=== PATIENT | male | born 1965 | race Caucasian/White ===

== ENCOUNTER 2018-11-16 09:57 | Emergency (ER) | payer BC ==
[2018-11-16 11:03] LABS: Absolute Monocytes 0.8 K/uL (0.1-1.3); Absolute Neutrophil 3.3 K/uL (1.8-8.0); Basophils % 0.6 % (0-1.3); Eosinophils % 1.9 % (0-4.4); Hematocrit 43.3 % (39.6-49.0); Lymphocytes % 19.8 % (15.3-44.8); MPV 7.1 fL (7.6-11.3); Monocytes % 15.2 % (3.3-12.3); RBC Red Blood Cell Count 4.78 M/uL (4.33-5.43)
[2018-11-16 11:05] LABS: Protime INR 1.08
[2018-11-16 11:18] LABS: ALT/SGPT 59 U/L (12-78); AST/SGOT 27 U/L (15-37); Albumin 3.5 g/dL (3.4-5.0); Alkaline Phosphatase 126 U/L (45-117); BUN Blood Urea Nitrogen 9 mg/dL (7-18); Bicarbonate 26 mmol/L (21-32); Bilirubin Direct 0.2 mg/dL (0-0.2); Bilirubin Total 0.3 mg/dL (0.2-1.0); Glucose Level 97 mg/dL (74-106); Lipase 91 U/L (73-393); Potassium 3.9 mmol/L (3.5-5.1); Protein, Total 7.4 g/dL (6.4-8.2); Sodium Level 140 mmol/L (136-145)
--- NOTE | 2018-11-16 11:43 | RAD REPORT ---
EXAM DESCRIPTION: CT - Abdomen Pelvis W Contrast - 11/16/2018 11:30 am CLINICAL HISTORY: Abdominal pain, pelvic and rectal pain, bright red blood per rectum COMPARISON: CT imaging September 2015 TECHNIQUE: Biphasic, helical CT imaging of the abdomen and pelvis was performed following 100 ml non -ionic IV contrast. Oral contrast was given. All CT scans are performed using dose optimization technique as appropriate and may include automated exposure control or mA/KV adjustment according to patient size. FINDINGS: No suspicious findings in the lung bases. No pericardial thickening or effusion. Liver shows fatty infiltration pattern. In the right lobe of the liver near the gallbladder fossa the re is a 2.9 centimeter area of diminished attenuation. This is slightly larger than seen in 2015. Thi s is probably a form of spared parenchyma in an otherwise fatty infiltrated liver. An atypical mayo ioma would be possible. Malignant or aggressive process would be unlikely given the small amount of c hange occurring over a greater than 3 year time interval. Gallbladder and biliary tree are also witho ut suspicious finding. No spleen or pancreatic abnormality. Symmetric renal function is seen with no hydronephrosis or suspicious renal mass. No pyelonephritis o r acute parenchymal process. No bladder abnormalities. No adrenal abnormalities. No stomach or small bowel abnormality seen. Appendix is normal. There is circumferential wall thicken ing and edema throughout the colon. Minimal sigmoid diverticulosis is present. A discrete or focal co gilbert mass is not identified. No free air, free fluid or pneumatosis. Trace amount of stranding is seen adjacent to the colon. N o mass or bulky lymphadenopathy. No omental thickening. Patient has moderate-sized bilateral fat fill ed inguinal hernias. No acute bone finding. Prominent disc and endplate degenerative change present at L5-S1. IMPRESSION: Nonspecific pancolitis pattern with no discrete mass. No obstruction, free air or surgically emergent finding. Fatty infiltration of the liver with a small area of spared parenchyma or atypical hemangioma in the right lobe near the gallbladder fossa. This has minimally enlarged since 2015. Malignancy would not b e suspected given the minimal change management consultant a greater than 3 year interval.
[2018-11-16 12:13] LABS: Blood Morphology Comment NOT SEEN (NOT SEEN); Dohle Bodies PRESENT; Platelet Estimate ADEQ; Toxic Granulation 1+
--- NOTE | 2018-11-16 12:20 | EDPHYS ---
Physician Documentation [facility] Name: Vito Nava Sr Age: 53 yrs Sex: Male : 1965 Arrival Date: 11/16/2018 Time: 10:00 Bed 19 Private MD: Dina Schumacher K ED Physician Ben Luna HPI: 11/16 11:00 This 53 yrs old Male presents to ER via Ambulatory with complaints of Rectal pm1 Bleeding. 11:00 The patient presents to the emergency department with bleeding from the rectum/anus, pm1 that is mild. Onset: The symptoms/episode began/occurred yesterday. Context: the patient has no known special context relating to the rectal area complaint(s). Modifying factors: The symptoms are alleviated by nothing, The symptoms are aggravated by bowel movement. Associate signs and symptoms: Pertinent positives: abdominal pain in the abdomen diffusely, anal area with bowel movement, Pertinent negatives: constipation, diarrhea, dysuria, fever, vomiting. Had colitis many years ago. The patient has not recently seen a physician, the patient's primary care provider is Dr. Dina Schumacher. Patient reports bright red blood present with bowel movements since yesterday. Has generalized abdominal pain and anal area pain with bowel movements. Historical: - Allergies: 10:05 No Known Allergies; aa5 - PMHx: 10:05 None; aa5 - PSHx: 10:05 melanoma removal-left underarm; aa5 - Immunization history:: Adult Immunizations up to date. - Social history:: Smoking status: Patient/guardian denies using tobacco. - Ebola Screening: : No symptoms or risks identified at this time. ROS: 11:00 Constitutional: Negative for fever, chills, and weight loss, Eyes: Negative for injury, pm1 pain, redness, and discharge, ENT: Negative for injury, pain, and discharge, Neck: Negative for injury, pain, and swelling, Cardiovascular: Negative for chest pain, palpitations, and edema, Respiratory: Negative for shortness of breath, cough, wheezing, and pleuritic chest pain. 11:00 Back: Negative for injury and pain, : Negative for injury, bleeding, discharge, and swelling, MS/Extremity: Negative for injury and deformity, Skin: Negative for injury, rash, and discoloration. 11:00 Neuro: Negative for headache, weakness, numbness, tingling, and seizure. 11:00 Abdomen/GI: Positive for abdominal pain, rectal pain, rectal bleeding, Negative for nausea, vomiting, and diarrhea, hematemesis, black/tarry stool. Exam: 11:00 Constitutional: This is a well developed, well nourished patient who is awake, alert, pm1 and in no acute distress. Head/Face: Normocephalic, atraumatic. Eyes: Pupils equal round and reactive to light, extra-ocular motions intact. Lids and lashes normal. Conjunctiva and sclera are non-icteric and not injected. Cornea within normal limits. Periorbital areas with no swelling, redness, or edema. ENT: Nares patent. No nasal discharge, no septal abnormalities noted. Tympanic membranes are normal and external auditory canals are clear. Oropharynx with no redness, swelling, or masses, exudates, or evidence of obstruction, uvula midline. Mucous membranes moist. Neck: Trachea midline, no thyromegaly or masses palpated, and no cervical lymphadenopathy. Supple, full range of motion without nuchal rigidity, or vertebral point tenderness. No Meningismus. Chest/axilla: Normal chest wall appearance and motion. Nontender with no deformity. No lesions are appreciated. Cardiovascular: Regular rate and rhythm with a normal S1 and S2. No gallops, murmurs, or rubs. Normal PMI, no JVD. No pulse deficits. Respiratory: Lungs have equal breath sounds bilaterally, clear to auscultation and percussion. No rales, rhonchi or wheezes noted. No increased work of breathing, no retractions or nasal flaring. Abdomen/GI: Soft, non-tender, with normal bowel sounds. No distension or tympany. No guarding or rebound. No evidence of tenderness throughout. 11:00 Back: No spinal tenderness. No costovertebral tenderness. Full range of motion. Skin: Warm, dry with normal turgor. Normal color with no rashes, no lesions, and no evidence of cellulitis. MS/ Extremity: Pulses equal, no cyanosis. Neurovascular intact. Full, normal range of motion. 11:00 Abdomen/GI: Rectal exam: rectal tone normal, hemorrhoid(s), external, with pain, without bleeding, without inflammation, without thrombosis, tenderness, that is mild, Robyn RN, Anal fissure present at 6 o'clock. External hemorrhoids present at 3 and 9 o'clock. 11:00 Neuro: Orientation: is normal, Motor: is normal, moves all fours, Gait: is steady, at a normal pace, without difficulty. Vital Signs: 10:08 BP 154 / 104; Pulse 90; Resp 14; Temp 98.5; Pulse Ox 96% ; Weight 90.72 kg; Height 5 bp ft. 7 in. (170.18 cm); Pain 8/10; 10:55 BP 148 / 85; Pulse 81; Resp 14; Pulse Ox 94% ; bp 13:00 BP 142 / 80; Pulse 74; Resp 14; Pulse Ox 96% ; bp 10:08 Body Mass Index 31.32 (90.72 kg, 170.18 cm) bp MDM: 10:15 Patient medically screened. pm1 12:18 Data reviewed: vital signs. pm1 12:18 Counseling: I had a detailed discussion with the patient and/or guardian regarding: the pm1 historical points, exam findings, and any diagnostic results supporting the discharge/admit diagnosis, lab results, radiology results, the need for outpatient follow up, a equipment monitor phototypesetting, colonoscopy , to return to the emergency department if symptoms worsen or persist or if there are any questions or concerns that arise at home. 11/16 10:41 Order name: Basic Metabolic Panel; Complete Time: 11:19 pm11/16 10:41 Order name: CBC with Diff; Complete Time: 12:17 pm11/16 10:41 Order name: Creatinine for Radiology; Complete Time: 11: pm11/16 10:41 Order name: Hepatic Function; Complete Time: 11: pm11/16 10:41 Order name: Lipase; Complete Time: 11:19 pm11/16 10:41 Order name: Type And Screen; Complete Time: 12:17 pm11/16 10:41 Order name: IV Saline Lock; Complete Time: 10:54 pm11/16 10:41 Order name: PT-INR; Complete Time: 11:19 pm11/16 10:41 Order name: CT Abd/Pelvis - W/Contrast: IV contrast only; Complete Time: 11:44 pm1 11/16 12:13 Order name: Manual Differential; Complete Time: 12:17 EDMS 11/16 10:41 Order name: Labs collected and sent; Complete Time: 10:54 pm1 Administered Medications: 12:30 Drug: Cipro 500 mg Route: PO; bp 13:44 Follow up: Response: No adverse reaction bp 12:30 Drug: Flagyl 500 mg Volume: 100 ml; Route: IVPB; Rate: 200 ml/hr; Infused Over: 30 bp mins; Site: right forearm; 13:43 Follow up: IV Status: Completed infusion bp Disposition: 14:59 Co-signature as Attending Physician, Ben Luna MD. rn Disposition: 11/16/18 12:20 Discharged to Home. Impression: Pancolitis. - Condition is Stable. - Discharge Instructions: Colitis. - Prescriptions for Flagyl 500 mg Oral Tablet - take 1 tablet by ORAL route every 8 hours for 10 days; 30 tablet. Cipro 500 mg Oral Tablet - take 1 tablet by ORAL route every 12 hours for 10 days; 20 tablet. Colace 100 mg Oral Tablet - take 1 tablet by ORAL route every 12 hours; 14 tablet. - Work release form, Medication Reconciliation Form, Thank You Letter, Antibiotic Education, Prescription Opioid Use form. - Follow up: Emergency Department; When: As needed; Reason: Worsening of condition. Follow up: Contreras Whitaker MD; When: 2 - 3 days; Reason: Recheck today's complaints, Continuance of care, Re-evaluation by your physician. - Problem is new. - Symptoms have improved. Signatures: Dispatcher [employer] EDMS Ben Luna MD MD rn Calderon, Audri, RN RN aa5 Jaime Carrion, FOUNDATION ENGINEER FOUNDATION ENGINEER pm1 Rusty Pal, RN RN bp Corrections: (The following items were deleted from the chart) 10:56 10:25 Foot Right 3 View+RAD.RAD.BRZ ordered. EDDC EDMS 10:56 10:26 Ankle Right 3 View+RAD.RAD.BRZ ordered. EDDC EDMS 13:44 12:20 11/16/2018 12:20 Discharged to Home. Impression: Pancolitis. Condition is Stable. bp Forms are Medication Reconciliation Form, Thank You Letter, Antibiotic Education, Prescription Opioid Use. Follow up: Emergency Department; When: As needed; Reason: Worsening of condition. Follow up: Contreras Whitaker; When: 2 - 3 days; Reason: Recheck today's complaints, Continuance of care, Re-evaluation by your physician. Problem is new. Symptoms have improved. pm1
--- NOTE | 2018-11-16 12:20 | ER ---
Nurse's Notes [facility] Name: Vito Nava Sr Age: 53 yrs Sex: Male : 1965 Arrival Date: 11/16/2018 Time: 10:00 Bed 19 Private MD: Dina Schumacher K Diagnosis: Pancolitis Presentation: 11/16 10:05 Presenting complaint: Patient states: bright red blood in stool since yesterday. Pt aa5 reports rectal pain and generalized abd aching. Denies nausea and vomiting. 10:05 Transition of care: patient was not received from another setting of care. Onset of aa5 symptoms was October 2018. Risk Assessment: Do you want to hurt yourself or someone else? Patient reports no desire to harm self or others. Initial Sepsis Screen: Does the patient meet any 2 criteria? No. Patient's initial sepsis screen is negative. Does the patient have a suspected source of infection? No. Patient's initial sepsis screen is negative. Care prior to arrival: None. 10:05 Method Of Arrival: Ambulatory aa5 10:05 Acuity: SISI 3 aa5 Historical: - Allergies: 10:05 No Known Allergies; aa5 - PMHx: 10:05 None; aa5 - PSHx: 10:05 melanoma removal-left underarm; aa5 - Immunization history:: Adult Immunizations up to date. - Social history:: Smoking status: Patient/guardian denies using tobacco. - Ebola Screening: : No symptoms or risks identified at this time. Screenin:06 Abuse screen: Denies threats or abuse. Denies injuries from another. Nutritional bp screening: No deficits noted. Tuberculosis screening: No symptoms or risk factors identified. Fall Risk None identified. Assessment: 10:04 General: Appears in no apparent distress. comfortable, obese, Behavior is cooperative, bp appropriate for age, anxious. General: C/O BRIGHT RED BLOOD IN STOOL SINCE Y/D. Pain: Complains of pain in RECTUM. Neuro: Level of Consciousness is awake, alert, obeys commands, Oriented to person, place, time, situation, Appropriate for age. Cardiovascular: No deficits noted. Respiratory: Airway is patent Respiratory effort is even, unlabored, Respiratory pattern is regular, symmetrical. GI: Reports rectal bleeding, bloody stool. : No signs and/or symptoms were reported regarding the genitourinary system. EENT: No deficits noted. Derm: No deficits noted. Musculoskeletal: Circulation, motion, and sensation intact. Range of motion: intact in all extremities. 11:21 Reassessment: PT TO CT WITH Pe[place]orn. OTHER ORDERS COMPLETED. bp 13:41 Reassessment: PT D/C HOME AMBULATORY WITH FAMILY, DX WITH PANCOLITIS. bp Vital Signs: 10:08 BP 154 / 104; Pulse 90; Resp 14; Temp 98.5; Pulse Ox 96% ; Weight 90.72 kg; Height 5 bp ft. 7 in. (170.18 cm); Pain 8/10; 10:55 BP 148 / 85; Pulse 81; Resp 14; Pulse Ox 94% ; bp 13:00 BP 142 / 80; Pulse 74; Resp 14; Pulse Ox 96% ; bp 10:08 Body Mass Index 31.32 (90.72 kg, 170.18 cm) bp ED Course: 10:00 Patient arrived in ED. mr 10:01 Dina Schumacher MD is Private Physician. mr 10:02 Rusty Pal, ERINN is Primary Nurse. bp 10:03 Jaime Carrion NP is PHCP. pm1 10:03 Ben Luna MD is Attending Physician. pm1 10:06 Patient has correct armband on for positive identification. Placed in gown. Bed in low bp position. Call light in reach. Side rails up X2. Adult w/ patient. 10:08 Triage completed. aa5 10:54 Inserted saline lock: 18 gauge in right forearm, using aseptic technique. Blood bp collected. 11:29 CT completed. Patient tolerated procedure well. Patient moved to CT via wheelchair. sj Patient moved back from CT. 11:31 CT Abd/Pelvis - W/Contrast: IV contrast only In Process Unspecified. EDMS 12:19 Contreras Whitaker MD is Referral Physician. pm1 13:41 No provider procedures requiring assistance completed. IV discontinued, intact, bp bleeding controlled, No redness/swelling at site. Pressure dressing applied. 13:42 Arm band placed on. bp Administered Medications: 12:30 Drug: Cipro 500 mg Route: PO; bp 13:44 Follow up: Response: No adverse reaction bp 12:30 Drug: Flagyl 500 mg Volume: 100 ml; Route: IVPB; Rate: 200 ml/hr; Infused Over: 30 bp mins; Site: right forearm; 13:43 Follow up: IV Status: Completed infusion bp Outcome: 12:20 Discharge ordered by MD. pm1 13:42 Discharged to home ambulatory, with family. bp 13:42 Condition: stable 13:42 Discharge instructions given to patient, family, Instructed on discharge instructions, follow up and referral plans. medication usage, Demonstrated understanding of instructions, follow-up care, medications, Prescriptions given X 3. 13:44 Patient left the ED. bp Signatures: Dispatcher [employer] EDLA Theresa Lucio, Rosalina Lerner, RN RN aa5 Jaime Carrion NP JEWELRY FACER pm1 Rusty Pal, RN RN bp
[2018-11-16] MEDS ORDERED: CIPROFLOXACIN HCL 500 MG TAB ONE (12:33)
[2018-11-16] MEDS ORDERED: METRONIDAZOLE 500mg IVPB 500 MG/100 ML BAG IV ONE (12:33)
== END 2018-11-16 13:44 | disposition home or self-care (01) ==
LOC: ER 09:57
DX: K51.00 Ulcerative (chronic) pancolitis without complications (principal)
CPT/HCPCS: 36415; 74177; 80048; 80076; 83690; 85025; 85610; 86850; 86900; 86901; 96365; 99284; Q9967

== ENCOUNTER 2022-06-05 06:20 | Day surgery (SDC) | payer BC ==
[2022-06-05] MEDS ORDERED: Ringers Lactate 1,000 ML IV ONE (06:50)
[2022-06-05] MEDS ORDERED: CEFAZOLIN SODIUM 1 GM/VIAL ONE (06:50)
[2022-06-05 07:05] LABS: Absolute Lymphocytes (CBC) 1.6 K/uL (0.7-4.9); Hematocrit 39.1 % (39.6-49.0); Lymphocytes % 32.3 % (15.3-44.8); MCV 87.1 fL (80-100); MPV 6.4 fL (7.6-11.3); RBC Red Blood Cell Count 4.49 M/uL (4.33-5.43)
[2022-06-05 07:22] LABS: SARS-CoV-2 Antigen Rapid Res Negative (Negative)
[2022-06-05] MEDS ORDERED: BUPIVACAINE 0.5% PF 10 ML VIAL SQ ONE ×2 (07:27)
[2022-06-05] MEDS ORDERED: FENTANYL CITR 100 MCG/2 ML ONE ×2 (08:07→09:19)
[2022-06-05] MEDS ORDERED: propofoL 200 MG/20 ML VIAL IV ONE ×2 (08:07→09:19)
[2022-06-05] MEDS ORDERED: MIDAZOLAM HCL 2 MG/2 ML INJ ONE ×2 (08:08→09:19)
[2022-06-05] MEDS ORDERED: ONDANSETRON 4 MG/2 ML VIAL ONE ×2 (08:09→09:23)
[2022-06-05] MEDS ORDERED: LIDOCAINE 1% MPF 5 ML VIAL ONE (08:10)
[2022-06-05] MEDS ORDERED: EPHEDRINE SULF 50 MG/ML VIAL ONE (08:38)
--- NOTE | 2022-06-05 08:42 | RAD REPORT ---
EXAM DESCRIPTION: RAD - Chest Single View - 06/05/2022 6:52 am CLINICAL HISTORY: PRE-OP Chest pain. COMPARISON: CHEST SINGLE VIEW dated 04/05/2010; ABDOMEN ACUTE SERIES dated 01/18/2005 FINDINGS: Portable technique limits examination quality. The lungs are grossly clear. The heart is normal in size. No displaced fractures. IMPRESSION: No acute intrathoracic process suspected.
[2022-06-05] MEDS ORDERED: Mastisol Adhesive Liq ONE (08:53)
[2022-06-05] MEDS ORDERED: dexAMETHasone 10 MG/ML VIAL ONE (08:54)
--- NOTE | 2022-06-05 09:00 | P.OP ---
Date of Service: 06/05/22 Preop diagnosis: Right forearm mass Postop diagnosis: Same Procedure performed: Excision right forearm mass 3 x 4 cm with layered closure Surgeon: Jose Peña MD Kitchen Clerk: None Estimated blood loss: Minimal Specimen: Right forearm mass Findings: Likely sebaceous cyst Anesthesia: General Complications: None Drains: None Fluids and blood products: Nonapplicable Disposition: Recovery room Operative note: Patient brought to the OR and placed in the supine position. General anesthesia begun. Patient prepped and draped in usual sterile fashion. Marcaine 0.5% infiltrated locally. 15 blade used to make a 5 cm incision. Subcutaneous tissue divided. A 3 x 4 cm sebaceous cyst identified and freed from the surrounding tissue with sharp and blunt dissection. Cyst removed and sent to pathology. Wound irrigated and bleeding controlled with cautery. 3-0 chromic used to approximate subcutaneous tissue and close skin. Sterile dressing applied. Patient awakened and taken to recovery room in good general condition. CC: Dr. Dina Schumacher's office
[2022-06-05] MEDS ORDERED: LIDOCAINE 2% MPF 5 ML VIAL ONE (09:19)
[2022-06-05 09:32] VITALS: O2SAT 96
[2022-06-05 12:48] VITALS: BP 137/76; TEMP 98.1
--- NOTE | 2022-06-09 08:28 | EKG ---
Test Date: 2022-06-05 Test Time: 06:55:26 Machine Cementer And Folder: JORGE MEASUREMENT RESULTS: Intervals: Rate: 69 MD: 154 QRSD: 86 QT: 398 QTc: 426 [place]: P: 28 MD: 154 QRS: -16 T: 50 INTERPRETIVE STATEMENTS: Normal sinus rhythm Normal ECG Compared to ECG 04/05/2010 10:30:23 Prolonged QT interval no longer present Electronically Signed On 06-09-22 08:13:14 CDT by Jamarcus Barkley
== END 2022-06-05 10:05 | disposition home or self-care (01) ==
LOC: OR 06:20
PROVIDERS: ATTEND Surgery
PROC: 0JBG0ZZ Excision of Right Lower Arm Subcutaneous Tissue and Fascia, Open Approach (ICD-10-PCS; principal; 2022-06-05 08:00)
DX: L72.0 Epidermal cyst (principal); Z20.822 Contact with and (suspected) exposure to COVID-19
CPT/HCPCS: 93005; 85025; 36415; 88304; 71045; 87811; 11403; J2704; J2250; J3010; J1100; J7120; J2405; J0690; 88305

== ENCOUNTER 2024-10-30 11:18 | Emergency (ER) | payer BC ==
--- OUTSIDE RECORDS SUMMARY | 2024-10-30 11:20 | XMS REPORT | Continuity of Care Document ---
Author Name Unknown Address [address] [place] [address] [facility] Address [address] [place] [address] Care Team Providers Care Digital Associate Name Role Phone Blake Leonardo Attending Clinician Unavailable Payers Payer Name Policy Type Policy Number Effective Date Expirati on Date Source [facility] 6 [id number] 2024 00:00:00 [facility] Problems Condition Name Condition Details Condition Category Status Onset Date Resolution Date Last Treatment Date Treating Clinician Comments Source [id number] Mixed hyperlipid emia Problem [facility] [id number] History of melanoma Problem [facility] [id number] Body mass index [BMI] 34.0-34.9, adult Problem Active [facility] [id number] Other obesity due to excess calories Problem Active [facility] Social History Social Habit Start Date Stop Date Quantity Comments Source History of Tobacco Use [facility] Sex Assigned At [facility] Smoking Status Start Date Stop Date Source Former Smoker 2024-05-30 00:00:00 2024-05-30 00:00:00 [facility] Medications Ordered Medication Name Filled Medication Name Start Date Stop Date Current Medication? Ordering Clinician Indication Dosage Frequency Signature (SIG) Comments Components Source No Known Medications No Known Medications No [facility] Vital Signs Vital Name Observation Time Observation Value Comments S ource height 2024-05-30 09:00:00 67 [in_i] Commo n [facility] weight 2024-05-30 09:00:00 218.2 [lb_av] Co [facility] temperature 2024-05-30 09:00:00 97.7 [degF] Com [facility] bmi 2024-05-30 09:00:00 34.17 kg/m2 Comm on [facility] oximetry 2024-05-30 09:00:00 98 % Commo n [facility] blood pressure systolic 2024-05-30 09:00:00 139 mm[Hg] Common [facility] blood pressure diastolic 2024-05-30 09:00:00 78 mm[Hg] Common [facility] height 2024-04-26 10:20:00 67 [in_i] Commo n [facility] weight 2024-04-26 10:20:00 215 [lb_av] Comm on [facility] temperature 2024-04-26 10:20:00 98 [degF] Comm on [facility] bmi 2024-04-26 10:20:00 33.67 kg/m2 Comm on [facility] oximetry 2024-04-26 10:20:00 99 % Commo n [facility] blood pressure systolic 2024-04-26 10:20:00 138 mm[Hg] Common [facility] blood pressure diastolic 2024-04-26 10:20:00 74 mm[Hg] Common [facility] height 2022-06-01 14:00:00 67 [in_i] Commo n [facility] weight 2022-06-01 14:00:00 223.2 [lb_av] Co [facility] temperature 2022-06-01 14:00:00 98.8 [degF] Com [facility] bmi 2022-06-01 14:00:00 34.95 kg/m2 Comm on [facility] oximetry 2022-06-01 14:00:00 96 % Commo n [facility] respiratory rate 2022-06-01 14:00:00 17 /min [facility] blood pressure systolic 2022-06-01 14:00:00 135 mm[Hg] [facility] blood pressure diastolic 2022-06-01 14:00:00 74 mm[Hg] [facility] Encounters Start Date/Time End Date/Time Encounter Type Admission Type Attending Clinicians Care Facility Care Department Encounter ID Source 2024-04-24 13:41:00 Outpatient LeonardoBlkae navarro [facility] [id number] [facility] 2024-04-17 15:01:00 Outpatient LeonardoChinyere navarroh [facility] [id number] [facility] 2022-06-01 13:06:01 Outpatient LeonardoChinyere navarroh [facility] [id number] [facility] 2024-05-30 00:00:00 2024-05-30 00:00:00 OFFICE VISIT ESTAB PT LEVEL 3 [facility] [id number] [facility] 2024-04-26 00:00:00 2024-04-26 00:00:00 PREV VISIT EST AGE 40-64 [facility] [id number] [facility] 2024-04-17 00:00:00 2024-04-17 00:00:00 (TEL) [facility]C ST[facility] [id number] [facility] 2023-11-29 00:00:00 2023-11-29 00:00:00 (TEL) [facility] [id number] [facility] 2022-06-01 00:00:00 2022-06-01 00:00:00 PREV VISIT NEW AGE 40-64 [facility] ST[facility] [id number] [facility]
[2024-10-30] MEDS ORDERED: KETOROLAC 30 MG/ML INJ ONE (12:33)
--- NOTE | 2024-10-30 12:54 | RAD REPORT ---
EXAMINATION: ULTRASOUND DUPLEX OF SCROTUM AND TESTICLES CLINICAL INDICATION: Testicular pain TECHNIQUE: Duplex scan of the scrotal contents was performed including real-time color and spectral D oppler ultrasonography with arterial inflow and venous outflow. COMPARISON: 2019 FINDINGS: Right testicle measures 4.6 x 2.2 x 3.3 cm with a mildly inhomogeneous echotexture. Normal blood flow . Left testicle measures 5.1 x 2.7 x 3.8 cm with a mildly inhomogeneous echotexture. Normal blood flow. Right epididymis normal in size and echotexture. Normal blood flow Left epididymis normal in size and echotexture. Normal blood flow. 6 mm spermatocele Anterior scrotal thickening near midline IMPRESSION: 6 mm left spermatocele Anterior scrotal thickening near midline
[2024-10-30 13:33] LABS: Specific Gravity 1.028 (1.005-1.030); Sqamous Epithelial <5 /HPF (None Seen); Urine Bacteria None Seen /HPF (<20); Urine Bilirubin NEGATIVE (Negative); Urine Blood Negative (Negative); Urine Clarity Clear (Clear); Urine Color Light-Yellow (Yellow); Urine Culture Reflex Order NOT NEEDED; Urine Glucose NEGATIVE (Negative); Urine Ketones NEGATIVE (Negative); Urine Micro Reflex YN NO BILL MICROSCOPIC; Urine Nitrite NEGATIVE (Negative); Urine Protein NEGATIVE (Negative); Urine RBC <5 /HPF (None Seen); Urine Urobilinogen Normal (Normal); Urine WBC <5 /HPF (<5)
--- NOTE | 2024-10-30 13:51 | EDPHYS ---
Physician Documentation [facility] Name: Vito Nava Sr Age: 59 yrs Sex: Male : 1965 Arrival Date: 10/30/2024 Time: 11:18 Bed 13 Private MD: ED Physician Dontae Malcolm HPI: 10/30 11:43 This 59 yrs old Male presents to ER via Ambulatory with complaints of Groin ec2 Pain. 11:43 Patient arrives today for evaluation of right groin pain. Patient been having right ec2 groin pain for the past 5 days. Patient reports that it feels like the testicle has retracted into his abdomen. Patient reports no fevers or chills, no nausea or vomiting. Reports no penile discharge, denies any penile drainage or urinary complaints. Reports no redness to the scrotum. Patient reports no abdominal pain.. Historical: - Allergies: 11:40 No Known Allergies; hb - Home Meds: 11:40 None [Active]; hb - PMHx: 11:40 None; hb - PSHx: 11:40 Left Testicle; hb - Immunization history:: Adult Immunizations up to date. - Infectious Disease History:: Denies. - Social history:: Smoking status: Patient reports the use of cigarette tobacco products, denies chronic smoking, but will smoke occasionally. ROS: 11:43 Constitutional: as per hpi ec2 Exam: 11:43 Constitutional: GEN: NAD Head: atraumatic Eyes: EOMI Ears: External ears are ec2 normal. CV: regular rate LUNGS: no respiratory distress ABD: non-distended . : Right testicle with TTP, intact cremasteric reflex, no erythema to the scrotum, no significant warmth, no drainage appreciated from the penis. SKIN: no evidence of rashes MSK: no evidence of trauma Vital Signs: 11:39 BP 143 / 93; Pulse 88; Resp 16; Temp 97.8; Pulse Ox 96% on R/A; Weight 90.72 kg; Height hb 5 ft. 7 in. ; Pain 8/10; 12:30 BP 115 / 72; Pulse 69; Resp 16; Pulse Ox 97% on R/A; me1 13:00 BP 122 / 81; Pulse 67; Resp 15; Pulse Ox 96% ; me1 14:00 BP 104 / 77; Pulse 71; Resp 16; Temp 98.5; Pulse Ox 98% ; me1 14:24 Pain 5/10; me1 11:39 Body Mass Index 31.32 (90.72 kg, 170.18 cm) hb 11:39 Pain Scale: Adult hb 14:24 Pain Scale: Adult me1 MDM: 11:34 Medical Screening Exam initiated ec2 11:43 Data reviewed: vital signs, nurses notes. ED course: Patient arrives today for right ec2 groin pain. Examination yields scrotal findings as above. Will obtain testicular ultrasound. Suspect possible epididymitis, orchitis, additionally considered torsion, possible urinary tract infection.. 13:51 ED course: Ultrasound negative, urine noninfectious. Will discharge and have the ec2 patient follow-up with PCP and urology. Return precautions given.. 10/30 12:12 Order name: UAM; Complete Time: 13:50 ec2 10/30 12:12 Order name: Scrotum Testicles US; Complete Time: 12:59 ec2 10/30 13:00 Order name: Misc. Order: urine please, cath if needed; Complete Time: 13:14 ec2 Administered Medications: 12:45 Drug: Ketorolac IM 30 mg IM once Route: IM; Site: right gluteus; me1 14:24 Follow up: Pain 5/10 Adult; Response: No adverse reaction; Pain is decreased me1 Disposition Summary: 10/30/24 13:51 Discharge Ordered Notes: Location: Home ec2 Condition: Stable ec2 Diagnosis - Right testicular pain ec2 Followup: ec2 - With: Private Physician - When: - Reason: Re-evaluation by your physician Followup: ec2 - With: Alistair Shepherd MD - When: - Reason: Recheck today's complaints Discharge Instructions: - Discharge Summary Sheet ec2 - Spermatocele ec2 Forms: - Medication Reconciliation Form ec2 - Antibiotic Education ec2 - Prescription Opioid Use ec2 - Patient Portal Instructions ec2 - Leadership Thank You Letter ec2 Signatures: Dispatcher [employer] Fadumo Perkins RN RN Fabiola Jacobs RN RN me1 Dontae Malcolm MD MD ec2 Corrections: (The following items were deleted from the chart) 12:12 11:43 ED course: Patient arrives today for right groin pain.. ec2 ec2 12:12 12:12 Urinalysis W/Microscopic+U.LAB.BRZ ordered. EDMS EDMS 12:12 11:43 Constitutional: GEN: NAD Head: atraumatic Eyes: EOMI Ears: External ears are ec2 normal. CV: regular rate LUNGS: no respiratory distress ABD: non-distended SKIN: no evidence of rashes MSK: no evidence of trauma ec2
--- NOTE | 2024-10-30 13:51 | ER ---
Nurse's Notes [facility] Name: Vito Nava Sr Age: 59 yrs Sex: Male : 1965 Arrival Date: 10/30/2024 Time: 11:18 Bed 13 Private MD: Diagnosis: Right testicular pain Presentation: 10/30 11:39 Chief complaint: Right groin pain x 5 days. Denies urinary issues. Coronavirus screen: hb At this time, the client does not indicate any symptoms associated with coronavirus-19. Ebola Screen: No symptoms or risks identified at this time. Initial Sepsis Screen: Does the patient meet any 2 criteria? No. Patient's initial sepsis screen is negative. Does the patient have a suspected source of infection? No. Patient's initial sepsis screen is negative. Risk Assessment: Do you want to hurt yourself or someone else? Patient reports no desire to harm self or others. Onset of symptoms was October 26, 2024. 11:39 Method Of Arrival: Ambulatory hb 11:39 Acuity: SISI 3 hb Historical: - Allergies: 11:40 No Known Allergies; hb - Home Meds: 11:40 None [Active]; hb - PMHx: 11:40 None; hb - PSHx: 11:40 Left Testicle; hb - Immunization history:: Adult Immunizations up to date. - Infectious Disease History:: Denies. - Social history:: Smoking status: Patient reports the use of cigarette tobacco products, denies chronic smoking, but will smoke occasionally. Screenin:38 [facility] ED Fall Risk Assessment (Adult) History of falling in the last 3 months, me1 including since admission No falls in past 3 months (0 pts) Confusion or Disorientation No (0 pts) Intoxicated or Sedated No (0 pts) Impaired Gait No (0 pts) Mobility Assist Device Used No (0 pt) Altered Elimination No (0 pt) Score/Fall Risk Level 0 - 2 = Low Risk Maintained a safe environment, Provided non-skid footwear, Hourly rounding (assess needs \T\ fall precautionary measures) done. Abuse screen: Denies threats or abuse. Nutritional screening: No deficits noted. Tuberculosis screening: No symptoms or risk factors identified. Assessment: 12:38 General: Appears uncomfortable, well groomed, well developed, well nourished, Behavior me1 is calm, cooperative, appropriate for age, Reports Right groin pain x 5 days. Denies urinary issues. Pain: Complains of pain in groin and right femoral area Pain does not radiate. Pain currently is 7 out of 10 on a pain scale. Quality of pain is described as crampy, Pain began 5 days ago Is continuous. Neuro: Level of Consciousness is awake, alert, obeys commands, Oriented to person, place, time, situation, Appropriate for age. Cardiovascular: Patient's skin is warm and dry. Respiratory: Airway is patent Respiratory effort is even, unlabored, Respiratory pattern is regular, symmetrical. GI: Reports lower abdominal pain, right groin pain x 5 days. : Reports pain in right groin Denies burning with urination, urinary frequency. EENT: No signs and/or symptoms were reported regarding the EENT system. Derm: Skin is intact, is healthy with good turgor, Skin is pink, warm \T\ dry. Musculoskeletal: No signs and/or symptoms reported regarding the musculoskeletal system. Vital Signs: 11:39 BP 143 / 93; Pulse 88; Resp 16; Temp 97.8; Pulse Ox 96% on R/A; Weight 90.72 kg; Height hb 5 ft. 7 in. ; Pain 8/10; 12:30 BP 115 / 72; Pulse 69; Resp 16; Pulse Ox 97% on R/A; me1 13:00 BP 122 / 81; Pulse 67; Resp 15; Pulse Ox 96% ; me1 14:00 BP 104 / 77; Pulse 71; Resp 16; Temp 98.5; Pulse Ox 98% ; me1 14:24 Pain 5/10; me1 11:39 Body Mass Index 31.32 (90.72 kg, 170.18 cm) hb 11:39 Pain Scale: Adult hb 14:24 Pain Scale: Adult me1 ED Course: 11:20 Patient arrived in ED. ec2 11:20 Dontae Malcolm MD is Attending Physician. ec2 11:40 Triage completed. hb 12:09 Fabiola Jacobs, ERINN is Primary Nurse. me1 12:38 Patient has correct armband on for positive identification. Bed in low position. Call me1 light in reach. Side rails up X2. Provided Education on: POC. Verbalized understanding.. Client placed on continuous cardiac and pulse oximetry monitoring. NIBP monitoring applied. Pulse ox on. NIBP on. 12:38 No provider procedures requiring assistance completed. Patient did not have IV access me1 during this emergency room visit. 12:45 Scrotum Testicles US In Process Unspecified. EDMS 13:51 Alistair Shepherd MD is Referral Physician. ec2 14:25 Arm band placed on Patient placed in an exam room. me1 Administered Medications: 12:45 Drug: Ketorolac IM 30 mg IM once Route: IM; Site: right gluteus; me1 14:24 Follow up: Pain 5/10 Adult; Response: No adverse reaction; Pain is decreased me1 Medication: 12:38 VIS not applicable for this client. me1 Outcome: 13:51 Discharge ordered by MD. ec2 14:25 Discharged to home ambulatory, with significant other, me1 14:25 Condition: stable 14:25 Discharge instructions given to patient, significant other, Instructed on discharge instructions, follow up and referral plans. Demonstrated understanding of instructions, follow-up care, 14:26 Patient left the ED. me1 Signatures: Dispatcher [employer] EDWI Fadumo Caba RN RN Fabiola Jacobs RN RN me1 Dontae Malcolm MD MD ec2 Corrections: (The following items were deleted from the chart) 12:38 11:39 Chief complaint: Right groin pain x 5 days. Denies urinary issues. me1
== END 2024-10-30 14:26 | disposition home or self-care (01) ==
LOC: ER 11:18
DX: N50.811 Right testicular pain (principal); F17.210 Nicotine dependence, cigarettes, uncomplicated
CPT/HCPCS: 76870; 81001; 96372; 99284

== ENCOUNTER 2025-08-20 09:17 | Emergency (ER) | payer BC ==
[2025-08-20] MEDS ORDERED: ONDANSETRON 4 MG/2 ML VIAL ONE (09:35)
[2025-08-20] MEDS ORDERED: NA CHLORIDE 0.9% 1,000 ML ONE (09:35)
[2025-08-20] MEDS ORDERED: MORPHINE 2 MG/ML SYR ONE (09:35)
[2025-08-20] MEDS ORDERED: LIDOCAINE VISCOUS 2% 10ML ORAL SOLN ONE (10:13)
[2025-08-20 10:15] LABS: Absolute Lymphocytes (CBC) 1.8 K/uL (0.7-4.9); Hematocrit 43.0 % (39.6-49.0); Hemoglobin 14.5 g/dL (13.6-17.9); MCH 29.9 pg (27.0-35.0); MCHC 33.8 g/dL (32.0-36.0); MCV 88.5 fL (80-100); MPV 7.0 fL (7.6-11.3); Nucleated RBC Absolute Count 0.0 (0-0); Nucleated Red Blood Cells % 0.1 % (0-0); RBC Red Blood Cell Count 4.86 M/uL (4.33-5.43); White Blood Count 6.50 thou/uL (4.3-10.9)
[2025-08-20 10:31] LABS: ALT/SGPT 29.0 U/L (16-61); Albumin 3.1 g/dL (3.4-5.0); Albumin/Globulin Ratio 0.8 (1.1-1.8); Alkaline Phosphatase 132.0 U/L (45-117); Anion Gap 10.2 mEq/L (5.0-15.0); BUN Blood Urea Nitrogen 13.0 mg/dL (7-18); Globulin 3.8 g/dL (2.3-3.5); Glucose Level 102.0 mg/dL (74-106); Lipase 22.0 U/L (13-75)
[2025-08-20 10:49] LABS: AST/SGOT 22.0 U/L (15-37); Potassium 4.2 mEq/L (3.5-5.1)
--- NOTE | 2025-08-20 11:35 | RAD REPORT ---
EXAMINATION: CT ABDOMEN AND PELVIS WITH CONTRAST CLINICAL INDICATION: Abdominal pain TECHNIQUE: CT abdomen and pelvis was performed, after the administration of 100 cc Isovue-300.. Sagit williams and coronal reconstructions were obtained. One or more of the following dose reduction techniques were used: Automated exposure control, adjustment of the mA and kV according to patient si ze, and iterative reconstruction. Unless otherwise specified, incidental findings do not require dedicated imaging follow-up. [id number]. Oral contrast was not given which limits evaluation of bowel and appendix. COMPARISON: .2019 FINDINGS: The gallbladder is distended. Liver, spleen, pancreas, adrenals and kidneys appear unremarkable No evidence of diverticulitis. Spondylosis lumbar spine. Small umbilical hernia. Small to moderate bilateral inguinal hernias contai [place] fat. : IMPRESSION: Gallbladder distention
--- NOTE | 2025-08-20 12:20 | RAD REPORT ---
EXAM: Abdominal exam Limited ultrasound CLINICAL HISTORY: Abdominal pain COMPARISON: CT abdomen August 20, 2025 FINDINGS: A gallstone is not seen. Gallbladder is distended. Gallbladder wall not thickened. Biliary tree normal caliber IMPRESSION: Gallbladder distention A gallstone is not visualized
[2025-08-20 14:33] LABS: Urine Microscopic Reflex YN NO UMIC
--- NOTE | 2025-08-20 14:44 | ER ---
Nurse's Notes [facility] Name: Vito Nava Sr Age: 60 yrs Sex: Male : 1965 Arrival Date: 08/20/2025 Time: 09:17 Bed 7 Private MD: Diagnosis: Lower abdominal pain, unspecified;Umbilical hernia without obstruction or gangrene;Bilateral inguinal hernias Presentation: 08/20 09:29 Chief complaint: RLQ pain that radiates to groin x 4 days. Coronavirus screen: At this hb time, the client does not indicate any symptoms associated with coronavirus-19. Ebola Screen: No symptoms or risks identified at this time. Initial Sepsis Screen: Does the patient meet any 2 criteria? No. Patient's initial sepsis screen is negative. Does the patient have a suspected source of infection? No. Patient's initial sepsis screen is negative. Risk Assessment: Do you want to hurt yourself or someone else? Patient reports no desire to harm self or others. Onset of symptoms was August 16, 2025. 09:29 Method Of Arrival: Ambulatory hb 09:29 Acuity: SISI 3 hb Historical: - Allergies: 09:31 No Known Allergies; hb - Home Meds: 09:31 None [Active]; hb - PMHx: 09:31 None; hb - PSHx: 09:31 Left testicle; hb - Immunization history:: Adult Immunizations up to date. - Infectious Disease History:: Denies. - Social history:: Smoking status: Patient reports the use of cigarette tobacco products, denies chronic smoking, but will smoke occasionally. Screenin:[address] [facility] ED Fall Risk Assessment (Adult) History of falling in the last 3 months, ar8 including since admission No falls in past 3 months (0 pts) Confusion or Disorientation No (0 pts) Intoxicated or Sedated No (0 pts) Impaired Gait Mobility Assist Device Used No (0 pt) Altered Elimination No (0 pt) Score/Fall Risk Level 0 - 2 = Low Risk Oriented to surroundings, Maintained a safe environment. Abuse screen: Denies threats or abuse. Nutritional screening: No deficits noted. Tuberculosis screening: No symptoms or risk factors identified. Assessment: 09:40 General: Appears uncomfortable, Behavior is cooperative. ar8 09:40 Pain: Complains of pain in right lower quadrant, groin and right inguinal area Pain ar8 currently is 10 out of 10 on a pain scale. Neuro: Level of Consciousness is awake, alert, obeys commands, Oriented to person, place, time, situation. Cardiovascular: Patient's skin is warm and dry. Respiratory: Airway is patent Respiratory effort is even, unlabored, Respiratory pattern is regular, symmetrical. GI: Abdomen is round Abdomen is tender to palpation Reports lower abdominal pain. : No signs and/or symptoms were reported regarding the genitourinary system. 11:45 Reassessment: Patient appears in no apparent distress at this time. Patient and/or zm family updated on plan of care and expected duration. Pain level reassessed. Patient is alert, oriented x 3, equal unlabored respirations, skin warm/dry/pink. 13:06 Reassessment: Patient and/or family updated on plan of care and expected duration. Pain ap3 level reassessed. Patient is alert, oriented x 3, equal unlabored respirations, skin warm/dry/pink. Reassessment: Patient and/or family updated on plan of care and expected duration. Pain level reassessed. Patient is alert, oriented x 3, equal unlabored respirations, skin warm/dry/pink. General:. Neuro: Level of Consciousness is awake, alert, obeys commands, Oriented to person, place, time, situation, Appropriate for age Speech is normal. Cardiovascular: Patient's skin is warm and dry. Respiratory: Airway is patent Respiratory effort is even, unlabored, Respiratory pattern is regular, symmetrical. 15:00 Reassessment: Patient appears in no apparent distress at this time. Patient and/or zm family updated on plan of care and expected duration. Pain level reassessed. Patient is alert, oriented x 3, equal unlabored respirations, skin warm/dry/pink. Vital Signs: 09:29 BP 172 / 115; Pulse 86; Resp 18; Temp 97.8; Pulse Ox 97% on R/A; Weight 90.72 kg; hb Height 5 ft. 8 in. ; Pain 10/10; 12:34 BP 132 / 91; Pulse 60; Resp 20; Pulse Ox 99% on R/A; ar8 12:57 BP 128 / 94; Pulse 53; Resp 18; Pulse Ox 96% on R/A; ap3 15:15 BP 130 / 83; Pulse 63; Resp 17; Temp 97.9; Pulse Ox 98% on R/A; zm 09:29 Body Mass Index 30.41 (90.72 kg, 172.72 cm) hb 09:29 Pain Scale: Adult hb Andrez Coma Score: 15:15 Eye Response: spontaneous(4). Motor Response: obeys commands(6). Verbal Response: zm oriented(5). Total: 15. ED Course: 09:21 Patient arrived in ED. cj3 09:21 [facility]rejon [facility] sb4 09:21 Ben Luna MD is Attending Physician. sb4 09:31 Sulaiman Kessler, ERINN is Primary Nurse. ar8 09:31 Triage completed. hb 09:32 Arm band placed on. hb 09:40 Bed in low position. Call light in reach. Side rails up X2. Provided Education on: plan ar8 of care. Client placed on continuous cardiac and pulse oximetry monitoring. NIBP monitoring applied. 09:49 No provider procedures requiring assistance completed. Inserted saline lock: 20 gauge ar8 in right antecubital area, using aseptic technique. Blood collected. Flushed with 10 mL NS. 11:02 CT Abd/Pelvis - IV Contrast Only In Process Unspecified. EDMS 11:59 Abdomen Limited US In Process Unspecified. EDMS 14:43 Jose Peña MD is Referral Physician. sb4 15:11 IV discontinued, intact, bleeding controlled, No redness/swelling at site. Pressure zm dressing applied. Administered Medications: 09:51 Drug: NS 0.9% IV 1000 ml IV at 1 bolus Per protocol; to be given as a bolus over 60 ar8 minutes Route: IV; Rate: 1 bolus; Site: right forearm; 11:00 Follow up: Response: No adverse reaction; IV Status: Completed infusion; IV Intake: ar8 1000ml 09:52 Drug: Ondansetron IVP 4 mg IVP once; over 2 minutes Route: IVP; Site: right forearm; ar8 15:14 Follow up: Response: No adverse reaction zm 09:55 Drug: morphine IVP or IV 4 mg IVP once over 4 mins Route: IVP; Infused Over: 4 mins; ar8 Site: right forearm; 10:25 Follow up: Response: No adverse reaction; Pain is decreased zm 15:05 Drug: Hydrocodone-Acetaminophen PO (7.5 mg-325 mg) 1 tabs PO once Route: PO; zm 15:14 Follow up: Response: No adverse reaction Medication: 09:40 VIS not applicable for this client. ar8 Intake: 11:00 IV: 1000ml; Total: 1000ml. ar8 Outcome: 14:44 Discharge ordered by MD. lópez 15:11 Discharged to home ambulatory, with family, zm 15:11 Condition: stable 15:11 Discharge instructions given to patient, family, Instructed on discharge instructions, follow up and referral plans. no drinking with medication, no driving heavy equipment, medication usage, safety practices, Demonstrated understanding of instructions, follow-up care, medications, Prescriptions given X 2, 15:17 Patient left the ED. Signatures: Dispatcher [employer] EDMS Fadumo Caba RN ERINN Adwoa Lacey RN RN [email or web address] Tamara Oropeza RN RN Elza Sheffield PA-C PA-C Jackelyn Hobbs 3 Sulaiman Kessler RN RN ar8 Corrections: (The following items were deleted from the chart) 15:13 15:13 Hydrocodone-Acetaminophen PO (7.5 mg-325 mg) 1 tabs PO zm zm
--- NOTE | 2025-08-20 14:44 | EDPHYS ---
Physician Documentation [facility] Name: Vito Nava Sr Age: 60 yrs Sex: Male : 1965 Arrival Date: 08/20/2025 Time: 09:17 Bed 7 Private MD: ED Physician Ben Luna HPI: 08/20 09:30 This 60 yrs old Male presents to ER via Unassigned with complaints of Abdominal Pain - sb4 RLQ. 09:30 The patient presents with abdominal pain right lower quadrant. Patient reports right sb4 lower quadrant abdominal pain and groin pain for about 4 days now. States that it is also in his right flank. Denies any nausea, vomiting, diarrhea, constipation. Denies any fever or chills. Denies any issues urinating or blood in his urine. Denies any history of kidney stones. Denies any medical history at all, no abdominal surgeries. Historical: - Allergies: 09:31 No Known Allergies; hb - Home Meds: 09:31 None [Active]; hb - PMHx: :31 None; hb - PSHx: 09:31 Left testicle; hb - Immunization history:: Adult Immunizations up to date. - Infectious Disease History:: Denies. - Social history:: Smoking status: Patient reports the use of cigarette tobacco products, denies chronic smoking, but will smoke occasionally. ROS: 09:30 Constitutional: Negative for fever, chills, and weight loss, sb4 09:30 Abdomen/GI: Positive for abdominal pain, 09:30 Back: Positive for flank pain, on the right, 09:30 All other systems are negative, Exam: 09:30 Head/Face: Normocephalic, atraumatic. Eyes: Extra-ocular motions intact. Periorbital sb4 areas with no swelling, redness, or edema. ENT: Mucous membranes moist. Cardiovascular: Regular rate and rhythm with a normal S1 and S2. Respiratory: No increased work of breathing, no retractions or nasal flaring. Skin: Warm, dry with normal turgor. Normal color with no rashes, no lesions, and no evidence of cellulitis. 09:30 Constitutional: The patient appears alert, awake, in obvious pain, uncomfortable, 09:30 Abdomen/GI: Inspection: abdomen appears normal, Bowel sounds: normal, Palpation: soft, moderate abdominal tenderness, in the right lower quadrant, Vital Signs: 09:29 BP 172 / 115; Pulse 86; Resp 18; Temp 97.8; Pulse Ox 97% on R/A; Weight 90.72 kg; hb Height 5 ft. 8 in. ; Pain 10/10; 12:34 BP 132 / 91; Pulse 60; Resp 20; Pulse Ox 99% on R/A; ar8 12:57 BP 128 / 94; Pulse 53; Resp 18; Pulse Ox 96% on R/A; ap3 15:15 BP 130 / 83; Pulse 63; Resp 17; Temp 97.9; Pulse Ox 98% on R/A; zm 09:29 Body Mass Index 30.41 (90.72 kg, 172.72 cm) hb 09:29 Pain Scale: Adult hb Andrez Coma Score: 15:15 Eye Response: spontaneous(4). Motor Response: obeys commands(6). Verbal Response: zm oriented(5). Total: 15. MDM: 09:22 Medical Screening Exam initiated sb4 15:08 Data reviewed: vital signs, nurses notes, lab test result(s), radiologic studies, and sb4 as a result, I will discharge patient. Counseling: I had a detailed discussion with the patient and/or guardian regarding the historical points, exam findings, and any diagnostic results supporting the discharge/admit diagnosis, lab results, radiology results, the need for outpatient follow up, for definitive care, to return to the emergency department if symptoms worsen or persist or if there are any questions or concerns that arise at home. 15:08 Historians other than the Patient: Spouse/Significant Other: . Special discussion: sb4 Based on the patient's Hx, exam, and Dx evaluation, there is no indication for emergent surgery or inpatient Tx. It is understood by the patient/guardian that if the Sx's persist or worsen they need to return immediately for re-evaluation. 08/20 09:26 Order name: CBC with Diff; Complete Time: 10:16 sb4 08/20 09:26 Order name: CMP; Complete Time: 10:50 sb4 08/20 09:26 Order name: Lipase; Complete Time: 10:50 sb4 08/20 10:50 Order name: UA Rfx Ángel Cult if indicated; Complete Time: 14:34 sb4 08/20 09:26 Order name: CT Abd/Pelvis - IV Contrast Only; Complete Time: 11:39 sb4 08/20 11:39 Order name: Abdomen Limited US; Complete Time: 12:21 sb4 08/20 09:27 Order name: IV Saline Lock; Complete Time: 10:02 sb4 08/20 09:27 Order name: Labs collected and sent; Complete Time: 10:02 sb4 08/20 12:21 Order name: PO challenge; Complete Time: 13:06 sb4 Administered Medications: 09:51 Drug: NS 0.9% IV 1000 ml IV at 1 bolus Per protocol; to be given as a bolus over 60 ar8 minutes Route: IV; Rate: 1 bolus; Site: right forearm; 11:00 Follow up: Response: No adverse reaction; IV Status: Completed infusion; IV Intake: ar8 1000ml 09:52 Drug: Ondansetron IVP 4 mg IVP once; over 2 minutes Route: IVP; Site: right forearm; ar8 15:14 Follow up: Response: No adverse reaction zm 09:55 Drug: morphine IVP or IV 4 mg IVP once over 4 mins Route: IVP; Infused Over: 4 mins; ar8 Site: right forearm; 10:25 Follow up: Response: No adverse reaction; Pain is decreased zm 15:05 Drug: Hydrocodone-Acetaminophen PO (7.5 mg-325 mg) 1 tabs PO once Route: PO; zm 15:14 Follow up: Response: No adverse reaction zm Disposition: 18:15 Co-signature as Attending Physician, Ben Luna MD I reviewed the patient's care rn provided by the Advanced Practice Provider and agree with the diagnosis and treatment plan. Disposition Summary: 08/20/25 14:44 Discharge Ordered Notes: Location: Home sb4 Problem: new sb4 Symptoms: have improved sb4 Condition: Stable sb4 Diagnosis - Lower abdominal pain, unspecified sb4 - Umbilical hernia without obstruction or gangrene sb4 - Bilateral inguinal hernias sb4 Followup: sb4 - With: Jose Peña MD - When: As needed - Reason: Recheck today's complaints, Re-evaluation by your physician Discharge Instructions: - Discharge Summary Sheet sb4 - Inguinal Hernia, Adult, [id number] sb4 - Umbilical Hernia, Adult sb4 Forms: - Prescription Opioid Use sb4 - Patient Portal Instructions sb4 - Leadership Thank You Letter sb4 Prescriptions: - ondansetron 4 mg Oral Tablet,disintegrating - take 1 tablet ORAL route every 6 hours as needed for nausea and vomiting; 10 sb4 tablet; Refills: 0, Product Selection Permitted - Tylenol-Codeine #3 300mg-30mg Oral tablet - take 1 tablet ORAL route every 4 hours As needed; 16 tablet; Refills: 0, sb4 Product Selection Permitted Signatures: Dispatcher [employer] EDMS Ben Luna MD MD rn Baxter, Heather RN RN Tamara Crowder RN Elza Francis PA-C PAAna sb4 Sulaiman Kessler RN RN ar8 Corrections: (The following items were deleted from the chart) 09:27 09:27 Abdomen Pelvis W Con+CT.RAD.BRZ ordered. EDMS EDMS 10:51 10:51 UA Rfx Ángel Cult if indicated+U.LAB.BRZ ordered. EDMS EDMS 11:40 11:40 Abdomen Limited+US.RAD.BRZ ordered. EDMS EDMS
[2025-08-20] MEDS ORDERED: HYDROCODONE/APAP 7.5/325 MG TAB ONE (14:54)
[2025-08-20 17:10] VITALS: BP 130/83; TEMP 97.9; O2SAT 98
== END 2025-08-20 15:17 | disposition home or self-care (01) ==
LOC: ER 09:17
DX: R10.31 Right lower quadrant pain (principal); K42.9 Umbilical hernia without obstruction or gangrene; K40.20 Bilateral inguinal hernia, without obstruction or gangrene, not specified as recurrent; F17.210 Nicotine dependence, cigarettes, uncomplicated
CPT/HCPCS: 96361; 85025; 36415; 81003; 83690; 80053; 74177; 76705; 96375; 96374; 99284; Q9967; J2270; J2405; J7030